=== PATIENT | male | born 1970 | race Caucasian/White ===

== ENCOUNTER 2017-03-13 18:03 | Inpatient (IN) | payer OTHER ==
[~2017-03-13] VITALS: Ht 190.5 cm; Wt 127.0 kg
[2017-03-13 18:53] LABS: BASOPHIL % 0.8 % (0-2); PLATELET COUNT 149 x10^3mcL (130-400); RED CELL DISTRIBUTION WIDTH 12.8 % (11.5-14.5)
[2017-03-13 19:05] LABS: CALCIUM 7.7 mg/dL (8.5-10.1); CARBON DIOXIDE 25.8 mmol/L (21-32); CHLORIDE SERUM 106 mmol/L (98-107); CREATININE SERUM 1.1 mg/dL (0.7-1.3); GFR1 > 60 mL/min; GLUCOSE SERUM 179 mg/dL (74-106); POTASSIUM SERUM 3.1 mmol/L (3.5-5.1); SODIUM SERUM 138 mmol/L (136-145)
[2017-03-13 19:09] LABS: ALBUMIN 3.3 g/dL (3.4-5.0); ALKALINE PHOSPHATASE 61 U/L (46-116); ALT/SGPT 27 U/L (16-63); AST/SGOT 16 U/L (15-37); BILIRUBIN TOTAL 0.7 mg/dL (0.20-1.00); MAGNESIUM 1.9 mg/dL (1.8-2.4); TOTAL PROTEIN, SERUM 6.4 g/dL (6.4-8.2)
[2017-03-13 19:21] LABS: CK-MB 0.6 ng/mL (0-3.6)
[2017-03-13 20:04] LABS: microscopic required? NO
[2017-03-13 20:13] LABS: UA SPECIFIC GRAVITY 1.015 (1.005-1.035); urine erythrocyte NEGATIVE (NEGATIVE)
[2017-03-13 20:23] LABS: AMPHETAMINE QUAL UR NONE DETECTED (NEG <=1000)
[2017-03-13 21:42] VITALS: BP 152/86
[2017-03-14 04:47] VITALS: BP 105/68
[2017-03-14 08:26] VITALS: BP 124/66
[2017-03-14 09:30] VITALS: Ht 190.5 cm; Wt 127.0 kg
[2017-03-14 11:54] VITALS: BP 143/86
[2017-03-14 17:46] VITALS: BP 143/90
[2017-03-14 18:41] VITALS: BP 143/90
== END 2017-03-14 19:39 | disposition home or self-care (01) | DRG 364 ==
LOC: ED 18:03 → DU 20:23
PROVIDERS: Emergency Medicine; ADMIT Internal Medicine Pulmonary Disease
PROC: 0JQ03ZZ Repair Scalp Subcutaneous Tissue and Fascia, Percutaneous Approach (ICD-10-PCS; principal; 2017-03-13)
DX: S01.01XA Laceration without foreign body of scalp, initial encounter (principal); E16.2 Hypoglycemia, unspecified; E87.6 Hypokalemia; W18.39XA Other fall on same level, initial encounter; Y93.89 Activity, other specified; Y92.018 Other place in single-family (private) house as the place of occurrence of the external cause
CPT/HCPCS: 82962; G0480; J2001; J3490; J7030; J7042